=== PATIENT | female | born 1970 | race Caucasian/White ===

== ENCOUNTER 2022-09-01 09:30 | Outpatient (RCR) | payer MEDICAID, SELFPAY ==
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
--- NOTE | 2022-09-01 09:59 | HP.PTDCSUM ---
It has been my pleasure to treat CARMINA TURNER referred by Huber Powers PA-C, with the diagnosis of R SHLD CALCIFIC TENDONITIS AND PAIN for a total of 10 visit(s). Discharge Date: Please see the following information for a summary of their discharge status. Subjective: PATIENT REPORTS HER R SHOULDER MOBILITY, REACHING AND STRENGTH HAVE IMPROVED. I'M SO HAPPY. STATES SHE CAN'T QUITE REACH ALL THE WAY BEHIND HER BACK YET. IT IS JUST SO NICE TO BE ABLE TO SLEEP THROUGH THE NIGHT NOW. % Improvement: 80 Objective/Function: PATIENT WAS SEEN TODAY FOR RE-ASSESSMENT OF PROGRESS TOWARD THE SET PT GOALS AND THE NEED FOR FURTHER PHYSICAL THERAPY VS READINESS FOR DISCHARGE. PATIENT HAS RESPONDED REALLY WELL TO THERAPY WITH DECREASED C/O R SHLD PAIN, IMPORVED R SHLD ROM AND STRENGTH BUT IT IS STILL EASILY IRRIATED WITH MOTION/TESTING. SHE IS INDEP WITH A HEP AND APPROPRIATE FOR DISCHARGE TO [facility] AT THIS TIME. PATINET IS AGREEABLE. UPON EXAM TODAY: Sensory deficit: KURT UE LIGHT TOUCH SENSATION GROSSLY INTACT AND SYMMETRICAL. ROM deficit: SITTING AROM R SHLD: FLEX 155, ABD 155 DEG. SUPINE AROM IR/ER 65/50 DEG WITH 70 DEG ABD. PATIENT C/O R SHLD PAIN WITH ROM TESTING ALL PLANES. R SHOULDER PAIN IS EASILY AGGREVATED WITH TESTING DESPITE BEING GENTLE. INSTRUCTED IN GENTLE REPETATIVE SLEEPER STRETCH X 10 TWO TIMES A DAY TOLERATED. Motor deficit: L UE 5/5 EXCEPT SHLD 4/5. R UE: SHLD FLEX 3-/5, ABD 2/5, IR 3-/5, ER 2/5. ELBOW 4-/5. RIGHT HAND DOMINANT WITH R FELT FINISHER STRENGTH 65 LBS AND LEFT 75 LBS. Cervical Mvmt Loss: Flex: NIL. Pro: NIL. Ext: MIN. Ret: MIN. RSB: MOD. LSB: MOD. R Rot: MIN. L Rot: MIN. PATIENT DENIES PAIN, NUMBNESS OR TINGLING DOWN RIGHT UE WITH CERVICAL ROM TESTING. Postural strength: FAIR. Palpation: NO ACUTE R SHLD TENDERNESS WITH LIGHT PALPATION. [ End ] Goal 1:: INCREASE PAINFREE R SHLD ROM TO EASE ADL'S. Goal Progress: Goal Met Goal 2:: IMPROVE R UE FUNCTIONAL STRENGTH TO IMPROVE ADL'.S Goal Progress: Goal Met Goal 3:: DECREASE C/O R UE SX'S. Goal Progress: Goal Met Goal 4:: PATIENT WILL BE INDEP WITH A HEP FOR CONTINUED IMPROVEMENT ONCE FORMAL PHYSICAL THERAPY CONCLUDES. Goal Progress: Goal Met Plan: D/C If there are questions or concerns regarding this patient's physical therapy, please feel free to call me at [phone]. Thank you for the referral of this patient. Sincerely, Katiana Garcia, PT, Cert MDT Balance/Gait/Functional tests - Balance/Special Test Scores Quick DASH Score: [phone]
== END 2022-09-01 10:08 | disposition home or self-care (01) ==
LOC: PT 09:30
PROVIDERS: PCP Student in an Organized Health Care Education/Training Program; Referring Provider Physician Assistant Surgical; Visit Provider Physician Assistant Surgical
DX: M75.31 Calcific tendinitis of right shoulder (principal)
CPT/HCPCS: 97035; 97110; 97162; 97164

== ENCOUNTER 2023-12-27 10:57 | Emergency (ER) | payer MEDICAID, SELFPAY ==
[2023-12-27 10:58] VITALS: BP 134/89; PULSE 75; RESP 18; TEMP 36.2; O2SAT 100; BMI 37.0
--- NOTE | 2023-12-27 11:21 | EDS_ITS ---
HPI History of Present Illness Chief Complaint: Headache Informant: patient Onset/Context/Timing Onset: Yesterday Context: Gradual Timing: Continuous Quality -Headache: Positive for Similar Prior Headaches Associated Symptoms/Injury Associated Symptoms: Positive for Nausea, Vomiting and Photophobia Narrative Narrative: This is a 53-year-old female who presents for a headache. The patient describes an occipital and posterior headache that began last night. This morning the headache was associated with photophobia, nausea and vomiting. The patient states over the past few years she has developed migraines that she believes are hormonal related as they are, about monthly. Normally she is able to control her migraines at home, but was unable to keep any NSAIDs or medications down due to her nausea and vomiting today, which have been associated with migraines in the past as well. Patient has some photophobia. She also describes some neck stiffness associated with the migraines, which she has had before. She has some generalized paresthesias that are nonfocal and not unilateral. No falls or head injuries. No vision changes. No to no difficulty with speech or swallowing. No chest pain or shortness of breath. About 2 to 3 weeks ago she did have a URI. She had a slight cough yesterday. She is not having any abdominal pain. Patient states she only takes vitamins daily and is not on any current medications. She does follow with a PCP regularly. Prior similar symptoms: Yes PFSH PFSH Allergy/AdvReac Type Severity Reaction Status Date / Time No Known Allergies Allergy Verified 12/27/23 11:01 Social History Smoking Status: Former smoker ROS ROS ED Constitutional Constitutional ED: Denies chills or fever(s) Eyes Eyes: Reports other; Denies blurry vision or change in vision ENT ENT ED: Denies rhinorrhea or sore throat Cardiovascular Cardiovascular: Denies chest pain Respiratory/Chest Respiratory/Chest: Reports cough; Denies dyspnea Gastrointestinal Gastrointestinal: Reports nausea and vomiting; Denies abdominal pain, constipation or diarrhea Genitourinary Genitourinary ED: Denies dysuria Musculoskeletal Musculoskeletal: Denies arthralgias, back pain, myalgias or neck pain Neurologic Neurologic: Reports headache(s); Denies weakness EXAM Physical Exam Const Vital Signs: 12/27/23 10:58 Temperature 97.1 F L Temperature Source Temporal Pulse Rate 75 Respiratory Rate 18 Blood Pressure 134/89 H Blood Pressure Mean 104 Pulse Ox 100 Oxygen Delivery Method Room Air Positive well nourished, well developed, oriented x3 and healthy appearing Constitutional Narrative: Holding towel over her eyes General Appearance ED: active, cooperative and well developed Orientation / Consciousness: awake and oriented to person Exam Limitations: no limitations Nutritional Appearance: Negative for overweight HEENT Reports normocephalic, head/scalp atraumatic, moist mucous membranes, nasal mucous membranes and turbinates normal and oropharynx normal normocephalic, normal to inspection and atraumatic Face and Sinus: normal facial exam Nose: external nose normal and nares normal Mouth ED: Yes oral and palatal mucosa normal, Yes lips normal and Yes tongue normal Mouth: oral and palatal mucosa normal, lips normal and tongue normal Throat: posterior oropharynx normal Eyes PERRL, EOMs intact bilaterally and conjunctivae normal General Eye ED: Yes normal appearance of both eyes Visual Acuity: acuity normal Eyelid: eyelids normal Conjunctiva: conjunctiva normal Sclera: sclera normal Cornea: cornea normal Pupil: PERRL and accommodation reflex normal EOM: EOM abnormal Neck full ROM and no meningeal signs General: Negative for tenderness Lymph Lymphatic: no lymphadenopathy noted Chest Wall inspection of chest normal Chest: abnormal inspection of the chest Resp normal respiratory effort and normal air movement Effort and Inspection: able to speak in complete sentences and symmetric chest movement Auscultation: clear to auscultation bilaterally Cardio regular rate and regular rhythm Rate: regular rate Peripheral Pulses: pulses 2+ throughout GI normal to inspection, nondistended, normoactive bowel sounds Palpation: soft Rectal Exam: deferred no CVA tenderness Back/Spine normal ROM and normal to inspection Cervical Spine: cervical ROM normal Extremity normal to inspection, full ROM and normal capillary refill Neuro oriented x3, CN's II-XII intact bilaterally, moves all extremities and no focal motor deficits Sensorium / Orientation: awake and alert Motor Exam: strength 5/5 throughout Psych mental status grossly normal Appearance: grossly normal and appropriate Speech: normal speech Skin no rashes or lesions noted MDM MDM MDM Narrative Medical decision making narrative: This is a 53-year-old female who presents to the emergency department with migraine headache. She has associated photophobia, nausea and vomiting. She has had previous similar symptoms in the past. She is overall well-appearing and has no focal neurologic deficits on my physical exam. At this point no indication for any lab work or imaging. Patient was treated symptomatically in the ED with IV fluids, Benadryl, Toradol and Compazine. Initially, the patient did have some anxiety directly after medication administration. She declined any additional symptomatic management or anxiolytics. On repeat evaluation at 1417 symptoms significantly improved and headache nearly resolved. I did offer her home-going medications and she declined these. Patient is comfortable with discharge home and will follow-up as needed. All questions answered. Patient discharged from the ED. Discharge Plan Triage Chief Complaint: Headache ED Provider: Skyla Kolb Dx/Rx/DC Orders Clinical Impression: Migraine Instructions: ED, Migraine (Classical) Primary Care Provider: Jere Auguste Referrals: Jere Auguste, [Primary Care Provider] - Print Language: [place] Disposition Disposition: Home, Self Care
[2023-12-27] MEDS: 0.9% Normal Saline (1000mL) 1,000 ML 999 ML IV (11:28)
[2023-12-27] MEDS: Ketorolac 30 MG/ML Syringe IV (11:29)
[2023-12-27] MEDS: proCHLORPERazine 10 MG/2 ML Vial IV (11:29)
[2023-12-27] MEDS: DiphenhydrAMINE 50 MG/ML Syringe IV (11:29)
== END 2023-12-27 14:54 | disposition home or self-care (01) ==
PROVIDERS: Emergency Provider Emergency Medicine; PCP Student in an Organized Health Care Education/Training Program; Visit Provider Emergency Medicine
DX: G43.909 Migraine, unspecified, not intractable, without status migrainosus (principal); Z87.891 Personal history of nicotine dependence
CPT/HCPCS: 96361; 96374; 96375; 99283; J7030; A4216

== ENCOUNTER 2024-06-24 19:55 | Emergency (ER) | payer MEDICAID, SELFPAY ==
[2024-06-24 19:56] VITALS: BP 159/98; PULSE 96; RESP 15; TEMP 36.4; O2SAT 100; BMI 37.0
--- NOTE | 2024-06-24 20:41 | EDS_ITS ---
HPI History of Present Illness Chief Complaint: Hypertension Onset/Context/Timing Onset: Today Context: Gradual Onset Timing: Continuous Quality: Aching Location: Neck Worsened by: Stress Relieved by: Ice packs Narrative Narrative: Patient presents with elevated blood pressures today have been getting worse throughout the day today. Patient states that her diastolic blood pressures at home were in the upper 90s. Patient admits to some pain in her neck and jaw. Patient describes it as aching. Patient states it is worse with stress. Patient states it is better with ice. Patient admits to some subjective chills. Patient also admits to a sore throat. Patient states she has had some tinnitus over the past few days. Patient admits to some nausea and vomiting. Patient does admit to some urinary frequency. Patient admits to some intermittent palpitations. PFSH PFSH Allergy/AdvReac Type Severity Reaction Status Date / Time No Known Allergies Allergy Verified 06/24/24 19:55 Social History Smoking Status: Former smoker ROS ROS ED Constitutional Constitutional ED: Reports chills and subjective; Denies fever(s) Eyes Eyes: Denies blurry vision or change in vision ENT ENT ED: Reports sore throat and tinnitus; Denies rhinorrhea Cardiovascular Cardiovascular: Reports palpitations; Denies chest pain Respiratory/Chest Respiratory/Chest: Denies cough or dyspnea Gastrointestinal Gastrointestinal: Reports nausea and vomiting Genitourinary Genitourinary ED: Reports urinary frequency; Denies dysuria or hematuria Musculoskeletal Musculoskeletal: Reports back pain and neck pain Integumentary Reports rash; Denies abscess Neurologic Neurologic: Denies headache(s) or weakness Allergic/Immunologic Allergic/Immunologic ED: Denies mouth swelling or urticaria EXAM Physical Exam Const Vital Signs: 06/24/24 19:56 06/24/24 20:48 Temperature 97.5 F L Temperature Source Temporal Pulse Rate 96 Respiratory Rate 15 Respiratory Effort Normal Non-Labored Respiratory Pattern Normal Blood Pressure 159/98 H Blood Pressure Mean 118 Pulse Ox 100 Oxygen Delivery Method Room Air Positive well nourished and well developed General Appearance ED: well developed and NAD HEENT Reports moist mucous membranes Neck supple and no JVD Chest Wall palpation of chest normal Resp normal respiratory effort and clear to auscultation bilaterally Cardio regular rate and regular rhythm GI non-tender and non-distended Palpation: soft Extremity normal to inspection General Extremety ED: Negative for edema or tenderness General Extremity: Negative for edema Neuro oriented x3, CN's II-XII intact bilaterally and no sensory deficits noted Sensorium / Orientation: alert Motor Exam: strength 5/5 throughout Psych mental status grossly normal MDM MDM MDM Narrative Medical decision making narrative: Differential diagnosis includes cardiac dysrhythmia, cardiac ischemia, pneumonia, electrolyte abnormality, urinary tract infection, musculoskeletal pain, stress, and anxiety. EKG will be obtained to assess for cardiac dysrhythmia and cardiac ischemia. Chest x-ray will be obtained to assess for pneumonia and widened mediastinum. CBC will be obtained to assess for leukocytosis and anemia. Basic metabolic profile will be obtained to assess for electrolyte abnormality and renal function. High-sensitivity troponin will be obtained to assess for cardiac ischemia. Urinalysis will be obtained to assess for urinary tract infection. Lab Data Attestation: I reviewed the patient's lab results. Lab results narrative: CBC was reviewed and was within normal limits. Basic metabolic profile was reviewed and was essentially within normal limits. High-sensitivity troponin was reviewed and was normal at 9. Urinalysis was reviewed. There is no evidence of urinary tract infection or hematuria. Labs: Laboratory Results - last 24 hr 06/24/24 06/24/24 20:55 21:14 WBC 10.9 RBC 4.68 Hgb 13.6 Hct 40.9 MCV 87.4 MCH 29.1 MCHC 33.3 RDW Std Deviation 41.9 RDW Coeff of Janell 13.2 Plt Count 391 MPV 9.0 Immature Gran % (Auto) 0.300 Neut % (Auto) 79.6 H Lymph % (Auto) 12.0 L [place] % (Auto) 7.2 Eos % (Auto) 0.5 Baso % (Auto) 0.4 Absolute Neuts (auto) 8.7 H Absolute Lymphs (auto) 1.31 Nucleated RBC % 0 Sodium 135 L Potassium 3.8 Chloride 105 Carbon Dioxide 26.0 Anion Gap 4 L BUN 10 Creatinine 0.66 Estim Creat Clear Calc 132.68 Est GFR (MDRD) Af Amer 120 Est GFR (MDRD) Non-Af 100 BUN/Creatinine Ratio 15.2 Glucose 106 Calcium 9.6 Troponin I High Sens 9 Urine Color Yellow Urine Clarity Clear Urine pH 6.0 Ur Specific [place] 1.010 Urine Protein Negative Urine Glucose (UA) Normal Urine Ketones 50 H Urine Occult Blood Negative Urine Nitrite Negative Urine Bilirubin Negative Urine Urobilinogen Normal Ur Leukocyte Esterase Negative Urine RBC 0 SEEN Urine WBC 0 SEEN Ur Squamous Epith Cells 0 SEEN Urine Bacteria 0 SEEN Urine Mucus 0 SEEN Radiography Chest X-Ray - ED: 2 View, Read by ED Physician, Read by Radiologist and No Acute Disease Diagnostic Testing: Clinical Impression(s) from Imaging Studies Chest X-Ray 06/24/24 21:02 IMPRESSION: No radiographic evidence of acute cardiopulmonary disease. Electronically Signed: Lizzette Bernstein MD at 21:37 EST , PA and lateral chest x-ray was obtained. There are 2 views. On my independent interpretation, lung schaffer are clear. There is normal cardiac silhouette. Bony thorax is normal. There is no acute process noted. Radiologist also interpreted the x-ray and agrees. EKG Initial EKG: Attestation: I personally reviewed and interpreted this EKG as follows: Interpretation: Sinus Rhythm (79) and No Acute Injury Pattern Comments: EKG was obtained. On my independent interpretation, it showed a normal sinus rhythm with a rate of 79. MI interval, QRS interval, and QTc intervals were all normal. [place] was normal. There are no acute ST or T wave changes. Prior EKG tracings: not available for review Prior: No Prior Treatment and Re-Evaluation :: Patient was advised of her findings. Patient's blood pressure improved to 147/91. I do not feel patient needs to be started on any antihypertensives at this time. Patient was instructed to continue to monitor her blood pressure. Patient was instructed to follow-up with her primary care physician in 5 to 7 days. Patient was instructed to keep a log of her blood pressures and take that with her to her follow-up appointment. Patient was instructed to return if worse in any way. Patient understood and was agreeable with the plan. All questions were answered. Discharge Plan Triage Chief Complaint: Hypertension ED Provider: Juan Deutsch Dx/Rx/DC Orders Clinical Impression: Elevated blood pressure reading without diagnosis of hypertension, Body mass index (BMI) of 30 to 39 in adult Instructions: ED Hypertension, To Be Confirmed Primary Care Provider: Jere Auguste Referrals: Jere Auguste DO [Primary Care Provider] - 5-7 Days Print Language: [place] Disposition Disposition: Home, Self Care
--- NOTE | 2024-06-24 20:42 | EKG12_ITS ---
Test Reason : DYSRHYTHMIA Blood Pressure : */* mmHG Vent. Rate : 79 BPM Atrial Rate : 79 BPM P-R Int : 186 ms QRS Dur : 84 ms QT Int : 374 ms P-R-T Axes : 68 35 24 degrees QTcB Int : 428 ms Normal sinus rhythm Low voltage QRS Borderline ECG Confirmed by CHRISTI MORE MD ([id number]), newspaper photo editor STEPHANIE DHALIWAL ([id number]) on 06/27/2024 6:39:09 AM Referred By: Confirmed By: CHRISTI MORE MD
--- NOTE | 2024-06-24 21:02 | RAD_ITS ---
EXAM: XR CHEST, 2 VIEWS CLINICAL INDICATION: Hypertension TECHNIQUE: Frontal and lateral views of the chest. COMPARISON: No relevant prior studies available. FINDINGS: LUNGS AND PLEURAL SPACES: Unremarkable. No consolidation or edema. No pneumothorax. No effusion. HEART: Unremarkable. Cardiac silhouette not enlarged. MEDIASTINUM: Central airways and mediastinal contour are unremarkable. BONES/JOINTS: Unremarkable. No acute fracture. SOFT TISSUES: Unremarkable. RAD/Chest PA and Lateral IMPRESSION: No radiographic evidence of acute cardiopulmonary disease. Electronically Signed: Lizzette Bernstein MD at 21:37 EST ,
[2024-06-24 21:04] LABS: Absolute Lymphocyte Count 1.31 X10^3/uL (0.83-4.51); Absolute Neutrophil Count 8.7 X10^3/uL (2.0-7.7); Basophil# 0.04 X10^3/uL; Basophil% 0.4 % (0-1); Eosinophil# 0.05 X10^3/uL; Eosinophils% 0.5 % (0-5); Hematocrit 40.9 % (37-47); Hemoglobin 13.6 g/dL (12.0-15.0); Lymphocyte # 1.31 X10^3/ul (0.83-4.51); Mean Corp Hgb Conc 33.3 g/dL (32-36); Mean Corpuscular Hgb 29.1 pg (27.0-32.0); Mean Corpuscular Volume 87.4 fL (81-99); Monocyte# 0.79 X10^3/uL; Monocyte% 7.2 % (0-10); NRBC Flagged by Analyzer 0 % (0-5); Neutrophil % 79.6 % (47-70); Platelet Count 391 K/mm3 (150-450); RBC Distribution Width CV 13.2 % (11.6-14.6); RBC Distribution Width SD 41.9 fl (35.1-43.9); Red Blood Count 4.68 M/mm3 (4.2-5.4); White Blood Count 10.9 K/mm3 (4.4-11.0)
[2024-06-24 21:21] LABS: Anion Gap 4 (5-15); BUN 10 mg/dL (7-18); BUN/Creat Ratio 15.2 RATIO (10-20); Calcium,Total 9.6 mg/dL (8.5-10.1); Chloride 105 mmol/L (98-107); Creatinine, Serum 0.66 mg/dL (0.55-1.02); EST Glomerular Filtration Rate 100 mL/min (>60); Est Glom Filt Rate - Afr Amer 120 mL/min (>60); Estimated Creatinine Clearance 132.68 ml/min; Glucose 106 mg/dL (74-106); Potassium 3.8 mmol/L (3.5-5.1); Sodium Level 135 mmol/L (136-145); Troponin-I HS 9 pg/mL (3.0-54.0)
[2024-06-24 21:23] LABS: Bacteria 0 SEEN /hpf (None Seen); Mucous, Urine 0 SEEN /hpf (<or=2+); Red Blood Cells-Urine 0 SEEN /hpf (0-5); Squamous Epithelial Cells - UA 0 SEEN /hpf (5-10); White Blood Cells 0 SEEN /hpf (0-5)
[2024-06-24 21:27] LABS: Color, Urine Yellow (Yellow); Glucose, Dipstick Normal (Normal); Ketone-Dipstick 50 mg/dl (Negative); Leukocyte Esterase-Dipstick Negative /ul (Negative); Nitrite-Dipstick Negative (Negative); Occult Blood-Urine Negative /ul (Negative); Protein-Dipstick Negative (Negative); Urine Bilirubin Dipstick Negative (Negative); Urine Clarity Clear (Clear); Urine Urobilinogen Normal (Normal)
[2024-06-24 21:55] VITALS: BP 147/91; PULSE 74; RESP 17; TEMP 36.4; O2SAT 99
== END 2024-06-24 21:59 | disposition home or self-care (01) ==
PROVIDERS: Emergency Provider Emergency Medicine; PCP Student in an Organized Health Care Education/Training Program; Visit Provider Emergency Medicine
DX: R03.0 Elevated blood-pressure reading, without diagnosis of hypertension (principal); J02.9 Acute pharyngitis, unspecified; R68.84 Jaw pain; Z87.891 Personal history of nicotine dependence; R11.2 Nausea with vomiting, unspecified; R35.0 Frequency of micturition; R00.2 Palpitations; M54.9 Dorsalgia, unspecified
CPT/HCPCS: 71046; 80048; 81001; 84484; 85025; 93005; 99285; A4216